=== PATIENT | female | born 2000 | race Caucasian/White ===

== ENCOUNTER → 2024-11-15 16:21 | Outpatient (REF) | payer BC, SELFPAY ==
[2024-11-15 18:28] LABS: ALT (SGPT) 19 U/L (0-35); AST (SGOT) 21 U/L (14-36); Albumin 4.8 g/dl (3.5-5.0); Alkaline Phosphatase 95 U/L (38-126); Total Protein 8.0 g/dl (6.3-8.2)
[2024-11-17 11:42] LABS: tTG IgA Antibody > 160 EU/ml (0-19); tTG IgG Antibody 35.5 EU/ml (0-19)
== END ==
LOC: REG 16:21
PROVIDERS: ATTENDING PHYSICIAN Internal Medicine Gastroenterology; FAMILY PHYSICIAN Family Medicine
DX: R10.13 Epigastric pain (principal)
CPT/HCPCS: 36415; 80076; 82784; 83516; 86231

== ENCOUNTER 2024-12-01 06:18 | Day surgery (SDC) | payer BC, SELFPAY ==
[2024-12-01 09:00] VITALS: BMI 36.2
[2024-12-01 09:01] VITALS: BMI 36.2
[2024-12-01 09:02] VITALS: BP 141/81
[2024-12-01 10:34] VITALS: BP 115/71
[2024-12-01 10:45] VITALS: BP 132/78
[2024-12-01 11:00] VITALS: BP 128/87
== END 2024-12-01 11:15 | disposition home or self-care (01) ==
LOC: SDS 06:18
PROVIDERS: ATTENDING PHYSICIAN Internal Medicine Gastroenterology
DX: K22.89 Other specified disease of esophagus (principal); R76.8 Other specified abnormal immunological findings in serum; K31.89 Other diseases of stomach and duodenum; K29.50 Unspecified chronic gastritis without bleeding; K90.0 Celiac disease; K20.90 Esophagitis, unspecified without bleeding
CPT/HCPCS: 43239; 88305; 88342

== ENCOUNTER → 2025-02-09 08:45 | Outpatient (REF) | payer OTHER, SELFPAY | LOC: RAD 08:45 | PROVIDERS: ATTENDING PHYSICIAN Nurse Practitioner Family | DX: M25.561 Pain in right knee (principal) | CPT/HCPCS: 73564 ==

== ENCOUNTER → 2025-02-16 06:58 | Outpatient (REF) | payer BC, SELFPAY ==
[2025-02-16 07:44] LABS: Hematocrit 38.5 % (37.0-47.0); Hemoglobin 12.8 g/dL (12.0-16.0); Mean Corp Hgb Conc. 33.2 g/dL (33.0-37.0); Mean Corpuscular Volume 87.9 fL (81.0-99.0); Nucleated Red Blood Cells % 0 %; Platelet Count 336 10^3/uL (130-400); Red Cell Dist. Width 13.1 % (11.5-14.5)
[2025-02-16 08:18] LABS: ALT (SGPT) 17 U/L (0-35); AST (SGOT) 18 U/L (14-36); Albumin 4.4 g/dl (3.5-5.0); Alkaline Phosphatase 78 U/L (38-126); Blood Urea Nitrogen 12 mg/dl (7-17); Calcium 9.1 mg/dl (8.4-10.2); Carbon Dioxide 25 mmol/L (22-30); Chloride 106 mmol/L (98-107); Glucose 89 mg/dl (70-99); HDL Cholesterol 54 mg/dl; Iron 82 ug/dl (37-170); LDL Cholesterol, Calculated 135 mg/dl; Potassium 4.4 mmol/L (3.5-5.1); Sodium 139 mmol/L (135-145); Total Protein 7.4 g/dl (6.3-8.2); Very Low Density Lipoprotein 29 mg/dl (0-30); eGFR > 60.00
[2025-02-16 08:29] LABS: Total Iron Binding Capacity 350 ug/dl (265-497)
[2025-02-16 08:37] LABS: Vitamin D, 25-OH*** 18.7 ng/mL (30-80)
[2025-02-16 08:48] LABS: Ferritin 30.2 ng/ml (6.24-137)
[2025-02-16 08:55] LABS: Ferritin 30.7 ng/ml (6.24-137)
[2025-02-16 09:10] LABS: Vitamin B12 436 pg/ml (239-931)
== END ==
LOC: REG 06:58
PROVIDERS: ATTENDING PHYSICIAN Internal Medicine Gastroenterology; FAMILY PHYSICIAN Family Medicine
DX: Z00.00 Encounter for general adult medical examination without abnormal findings (principal); K90.0 Celiac disease
CPT/HCPCS: 36415; 80053; 80061; 82306; 82607; 82728; 83540; 83550; 84446; 84590; 85025

== ENCOUNTER → 2025-03-15 16:37 | Outpatient (REF) | payer OTHER, SELFPAY | LOC: PAVMRI 16:37 | PROVIDERS: ATTENDING PHYSICIAN Nurse Practitioner Family; FAMILY PHYSICIAN Family Medicine | DX: M25.561 Pain in right knee (principal) | CPT/HCPCS: 73721 ==